=== PATIENT | female | born 1945 | race Caucasian/White ===

== ENCOUNTER 2023-05-06 09:25 | Day surgery (SDC) | payer MEDICARE, MEDICAID ==
[2023-04-29 16:46] LABS: BASOPHILS # (AUTO) 0.1 X10'3 (0-0.2); BASOPHILS % (AUTO) 0.4 % (0-1); EOSINOPHILS # (AUTO) 0.1 X10'3 (0-0.9); EOSINOPHILS % (AUTO) 0.5 % (0-6); LYMPHOCYTES # (AUTO) 1.8 X10'3 (1.1-4.8); LYMPHOCYTES % (AUTO) 12.6 % (21-51); MEAN CORPUSCULAR HEMOGLOBIN 28.3 PG (27.0-31.0); MEAN CORPUSCULAR HGB CONC 32.6 g/dL (33.0-36.5); MEAN CORPUSCULAR VOLUME 86.8 FL (78-98); MEAN PLATELET VOLUME 8.1 FL (7.4-10.4); MONOCYTES # (AUTO) 0.6 X10'3 (0-0.9); NEUTROPHILS # (AUTO) 12.1 X10'3 (1.8-7.7); NEUTROPHILS % (AUTO) 82.5 % (42-75); PRE OP HEMATOCRIT 44.2 % (35.0-45.0); PRE OP HEMOGLOBIN 14.4 g/dL (12.0-16.0); PRE OP PLATELET COUNT 307 X10'3 (140-440); PRE OP WHITE BLOOD COUNT 14.7 10'3 (4.8-10.8); RED BLOOD COUNT 5.09 X10'6 (4.20-5.60); RED CELL DISTRIBUTION WIDTH 14.5 % (11.5-14.5)
[2023-04-29 16:58] LABS: PRE OP PROTIME 11.2 SECONDS (9.0-12.0)
[2023-04-29 17:01] LABS: ALBUMIN 3.6 G/DL (3.4-5.0); ALKALINE PHOSPHATASE 54 IU/L (46-116); BLOOD UREA NITROGEN 35 MG/DL (7-18); BUN/CREATININE RATIO 30.2 (10.0-20.0); CALCIUM 10.1 MG/DL (8.5-10.1); CHLORIDE 105 MMOL/L (99-107); CREATININE 1.16 MG/DL (0.40-0.90); PRE OP ALT 14 U/L (30-65); PRE OP ANION GAP 8 (8-16); PRE OP AST 11 U/L (10-37); PRE OP BILIRUB, TOTAL 0.4 MG/DL (0.0-1.0); PRE OP GLUCOSE 114 MG/DL (70-104); PRE OP POTASSIUM 4.9 MMOL/L (3.4-5.1); PRE OP SODIUM 142 MMOL/L (135-145); TOTAL CARBON DIOXIDE 28.6 MMOL/L (24-32); TOTAL PROTEIN 7.1 G/DL (6.4-8.2); eGFR 45 ML/MIN
[2023-05-06] VITALS (14 sets, daily range): BP systolic 134–152; BP diastolic 70–125; PULSE 70–93; RESP 12–21; TEMP 97.1; O2SAT 97–100
[~2023-05-06] VITALS: Ht 172.7 cm; Wt 148.3 kg
[~2023-05-06 09:25] MED LIST: ALBU90AE INH; BITTER MELON; BUPIVACAINE liposomal/PF 13.3 MG/ML vial IM ONE; BUPIVAcaine/PF 2.5 mg/ml (0.25%) 30ml vial ONE; FLUT1BLS3 INH; LIDOcaine 1% 30ml preserv. free vial ONE; LISI20TA28 PO; OCUVITE; PRED10TA23 PO; STOOL SOFTENER; VITAMIN B COMPLEX; clindamycin-Cleocin 900mg/D5W 50 ML IV ONE; famotidine 20mg tablet PO ONE; methylene blue (5mg/ml) 50mg/10ml ampul IV ONE; ringers solution, lacted 1,000 ML IV SCH
[2023-05-06] MEDS ORDERED: ipratropium 0.5 MG/2.5ML nebule IH ONE (09:45)
[2023-05-06] MEDS ORDERED: LIDOcaine 1% (10mg/ml) 2ml vial ONE (10:12)
[2023-05-06] MEDS ORDERED: desflurane 240ml liquid inh. IH ONE (10:45)
[2023-05-06] MEDS ORDERED: fentaNYL/PF 50MCG/1 ML 2ML syringe ONE (10:59)
[2023-05-06] MEDS ORDERED: propofol inj 20 ML IV ONE (11:00)
[2023-05-06] MEDS ORDERED: LIDOcaine 2% (20mg/ml) 5ml vial ONE (11:00)
[2023-05-06] MEDS ORDERED: midazolam 1 mg/ML 2ml injection ONE (11:00)
[2023-05-06] MEDS ORDERED: rocuronium 10mg/ml inj IV ONE (11:01)
[2023-05-06] MEDS ORDERED: acetaminophen 1,000mg/100ml IV 100 ML IV ONE (11:22)
[2023-05-06] MEDS ORDERED: sugammadex 200mg/2ml injection IV ONE (11:23)
[2023-05-06] MEDS ORDERED: labetalol 20mg/4ml (5mg/ml) syringe IV PRN (11:45)
[2023-05-06] MEDS ORDERED: ringers solution, lacted 1,000 ML IV SCH (11:45)
[2023-05-06] MEDS ORDERED: morphine 2 MG/ML inj. syringe IV PRN (11:45)
[2023-05-06] MEDS ORDERED: hydrALAZINE 20mg/ml inj. IV PRN (11:45)
[2023-05-06] MEDS ORDERED: fentaNYL/PF 50MCG/1 ML 2ML syringe IV PRN ×2 (11:45)
[2023-05-06] MEDS ORDERED: ondansetron/PF 4mg/2ml inj IV PRN (11:45)
[2023-05-06] MEDS ORDERED: GENTAMICIN IV ONE ×2 (11:50→12:45)
[2023-05-06] MEDS ORDERED: NORMAL SALINE IV ONE ×2 (11:50→12:45)
[2023-05-06] MEDS ORDERED: gentamicin 40 MG/1 ML inj ONE (12:49)
[2023-05-06] MEDS ORDERED: BUPIVAcaine/PF 2.5 mg/ml (0.25%) 30ml vial IJ ONE (13:15)
[2023-05-06] MEDS ORDERED: BUPIVACAINE liposomal/PF 13.3 MG/ML vial IM ONE (13:15)
[2023-05-06] MEDS ORDERED: LIDOcaine 1% 30ml preserv. free vial IJ ONE (13:15)
--- NOTE | 2023-05-06 13:32 | NUR ---
Received from OR via BE TO RR 6, accompanied by Anesthesiologist OSMEL and report given by Anesthesiologist. PT PRESENTS ON 8L VIA MASK. VSS, DRESSING TO RIGHT AXILLA AREA IS CDI COVERED WITH BREAST BINDER. NO S/S OF DISTRESS. LR RUNNING THRU PIV. SCD'S ARE ON BILATERAL LE. WILL CONTINUE TO ASSESS.
[2023-05-06] MEDS: morphine 4 MG/ML inj SYRINge IV PRN ×2 (13:40→13:47)
[2023-05-06] MEDS ORDERED: acetaminophen w/codeine (30MG) #3 tablet PO STA (14:03)
--- NOTE | 2023-05-06 15:12 | NUR ---
PT STABLE FOR D/C PER MD ORDERS. ALL D/C PAPERWORK HAS BEEN REVIEWED WITH PATIENT. ALL QUESTIONS, COMMENTS, AND CONCERNS WERE ANSWERED AT THIS TIME. VSS, MINIMAL C/O PAIN, DRESSING TO RIGHT AXILLA AREA REMAINS CDI AND COVERED WITH BREAST BINDER. PATIENT WAS ABLE TO URINATE BEFORE GOING HOME. PATIENT WAS TRANSFERRED OUT TO VEHICLE IN W/C WITHOUT INCIDENT WITH ALL PERSONAL BELONGINGS. GRANDSON WAS DRIVING HOME.
== END 2023-05-06 15:12 | disposition home or self-care (01) ==
LOC: PAS 09:25
PROVIDERS: ATTEND Surgery
DX: C50.411 Malignant neoplasm of upper-outer quadrant of right female breast (principal); C77.3 Secondary and unspecified malignant neoplasm of axilla and upper limb lymph nodes; E66.01 Morbid (severe) obesity due to excess calories; Z68.43 Body mass index [BMI] 50.0-59.9, adult; E78.5 Hyperlipidemia, unspecified; J43.9 Emphysema, unspecified; I12.9 Hypertensive chronic kidney disease with stage 1 through stage 4 chronic kidney disease, or unspecified chronic kidney disease; N18.30 Chronic kidney disease, stage 3 unspecified; K21.9 Gastro-esophageal reflux disease without esophagitis; M19.90 Unspecified osteoarthritis, unspecified site; Z88.1 Allergy status to other antibiotic agents; Z88.7 Allergy status to serum and vaccine; Z88.8 Allergy status to other drugs, medicaments and biological substances; Z88.2 Allergy status to sulfonamides; Z79.899 Other long term (current) drug therapy; Z98.51 Tubal ligation status; Z98.890 Other specified postprocedural states; Z85.3 Personal history of malignant neoplasm of breast; Z86.14 Personal history of Methicillin resistant Staphylococcus aureus infection; Z79.01 Long term (current) use of anticoagulants
CPT/HCPCS: 19301; 36415; 38525; 38900; 71046; 76098; 76998; 80053; 82948; 85025; 85610; 85730; 88307; 88342; 93005; 94640; 94760; C9290; J0131; J1580; J2250; J2270; J2405; J2704; J3010; J3490; J7030; J7120; Q9968; Z7506; Z7508; Z7512; A4215; A4615; A4618; A6258; A7000; C9728